=== PATIENT | male | born 1950 | race African-American/Black ===

== ENCOUNTER → 2018-08-14 | Outpatient (CLI) | payer BC, OTHER ==
[~2018-08-14] MED LIST: ASPI-1012 PO; Acetaminophen PO; CAPT50TA3 PO; CELE200 PO; GABA100C PO; OXYC5 PO; TRAM50TA4 PO
== END | disposition home or self-care (01) ==
LOC: RAH 10:36
PROVIDERS: ATTEND Orthopaedic Surgery
DX: S42.122A Displaced fracture of acromial process, left shoulder, initial encounter for closed fracture (principal); X58.XXXA Exposure to other specified factors, initial encounter; Y93.89 Activity, other specified; Y92.89 Other specified places as the place of occurrence of the external cause; Y99.8 Other external cause status
CPT/HCPCS: 73200

== ENCOUNTER 2018-08-21 15:15 | Emergency (ER) | payer OTHER ==
[~2018-08-21 15:15] MED LIST changes: -CEFAZOLIN SODIUM 1 GM VIAL IVP SCH
== END 2018-08-21 16:41 | disposition home or self-care (01) ==
LOC: EDH 15:15
DX: R94.31 Abnormal electrocardiogram [ECG] [EKG] (principal); I10 Essential (primary) hypertension; E78.5 Hyperlipidemia, unspecified; E11.9 Type 2 diabetes mellitus without complications; Z72.0 Tobacco use
CPT/HCPCS: 36415; 84484; 93005

== ENCOUNTER → 2018-08-21 | Outpatient (CLI) | payer OTHER ==
[~2018-08-21] VITALS: Ht 170.2 cm; Wt 83.6 kg
[~2018-08-21] MED LIST changes: +CEFAZOLIN SODIUM 1 GM VIAL IVP SCH; +DOCU-116 PO; +EZET10 PO; +PREG50 PO; +TIZA2CAP9 PO; +TYL3 PO
[2018-08-21 13:55] VITALS: BP 136/82
[2018-08-21 14:11] LABS: BASOPHILS % (AUTO) 0.8 % (0.0-5.0); EOSINOPHILS % (AUTO) 1.9 % (0.0-8.0); HEMATOCRIT 41.8 % (42-54); LYMPHOCYTES % (AUTO) 26.1 % (21.0-51.0); MEAN CORPUSCULAR HEMOGLOBIN 27.7 pg (27.0-33.0); MEAN CORPUSCULAR HGB CONC 32.6 g/dL (32.0-36.0); MONOCYTES % (AUTO) 9.1 % (3.0-13.0); NEUTROPHILS % (AUTO) 62.1 % (40.0-77.0); PLATELET COUNT (AUTO) 196 K/uL (130-400); RED BLOOD CELL COUNT(AUTO) 4.91 MIL/uL (4.50-6.20); RED CELL DISTRIBUTION WIDTH 14.3 % (11.0-15.5); WHITE BLOOD COUNT (AUTO) 7.6 K/uL (4.8-10.8)
[2018-08-21 14:27] LABS: CREATININE 1.2 mg/dL (0.5-1.5); POTASSIUM 4.2 mmol/L (3.5-5.1)
--- NOTE | 2018-08-21 14:45 | NUR ---
EKG [facility], DR VALE REVIEWED CHART AND EKG, STATED HE WANTS PATIENT TO BE EVALUATED BY HIS PRIMARY DOCTOR.
--- NOTE | 2018-08-21 15:00 | NUR ---
EKG NOTIFIED DR DAMON OF [facility] AND DR VALE WANTS A CLEARANCE, DR DAMON'S ORDERS TO SEND TO EMERGENCY ROOM TO BE EVALUATED AND TO BE CONSULTED AFTER EVALUATION
--- NOTE | 2018-08-21 15:10 | NUR ---
TRANSPORTED PATIENT TO EMERGENCY ROOM VIA WHEELCHAIR, REPORT GIVEN TO TRIAGE NURSE
--- NOTE | 2018-08-22 11:15 | NUR ---
CARDIAC CLEARANCE IS REQUIRED BEFORE PROCEDURE CAN BE DONE, PROCEDURE CANCELLED.
== END | disposition home or self-care (01) ==
LOC: EDSTATUS 08-19 15:30 → DAH 10:00 → EDSTATUS 15:30
PROVIDERS: ATTEND Orthopaedic Surgery
DX: Z01.818 Encounter for other preprocedural examination (principal); I51.7 Cardiomegaly; S42.032A Displaced fracture of lateral end of left clavicle, initial encounter for closed fracture; X58.XXXA Exposure to other specified factors, initial encounter; Y93.89 Activity, other specified; Y92.89 Other specified places as the place of occurrence of the external cause; Y99.8 Other external cause status
CPT/HCPCS: 36415; 80048; 85025; 93005

== ENCOUNTER → 2018-08-25 | Outpatient (CLI) | payer OTHER ==
[~2018-08-25] VITALS: Ht 170.2 cm; Wt 83.5 kg
[~2018-08-25] MED LIST changes: -ASPI-1012 PO; -Acetaminophen PO; -CELE200 PO; -GABA100C PO; -OXYC5 PO; +REGADENOSON 0.4 MG/5 ML PF SYG IVP SCH; -TRAM50TA4 PO
== END | disposition home or self-care (01) ==
LOC: RAH 08:08
PROVIDERS: ATTEND Internal Medicine Cardiovascular Disease
DX: Z01.818 Encounter for other preprocedural examination (principal); I34.0 Nonrheumatic mitral (valve) insufficiency; I11.9 Hypertensive heart disease without heart failure; R01.1 Cardiac murmur, unspecified
CPT/HCPCS: 78452; 93017; 93306; 96374; A9500 ×2; J2785

== ENCOUNTER 2018-09-04 07:13 | Inpatient (IN) | payer OTHER ==
[2018-09-02 16:22] VITALS: BP 119/73
[2018-09-02 16:31] LABS: APPEARANCE,URINE CLEAR (CLEAR); BILIRUBIN,URINE NEGATIVE (NEGATIVE); COLOR,URINE YELLOW (YELLOW); GLUCOSE, URINE (UA) 100 mg/dL (NEGATIVE); KETONES,URINE NEGATIVE (NEGATIVE); LEUKOCYTE ESTERASE ,URINE NEGATIVE (NEGATIVE); NITRATE,URINE NEGATIVE (NEGATIVE); OCCULT BLOOD,URINE NEGATIVE (NEGATIVE); PROTEIN,URINE NEGATIVE (NEGATIVE); UROBILINOGEN,URINE 0.2 mg/dL (0.2-1.0)
[2018-09-02 16:37] LABS: BACTERIA,URINE Rare /HPF (None Seen); RBC,URINE None Seen /HPF (0-1); SQUAMOUS EPITHELIAL CELL,UR None Seen /HPF (0-2); WBC,URINE 0-1 /HPF (0-1)
[2018-09-02 17:11] LABS: BASOPHILS % (AUTO) 0.4 % (0.0-5.0); EOSINOPHILS % (AUTO) 2.2 % (0.0-8.0); LYMPHOCYTES % (AUTO) 23.6 % (21.0-51.0); MEAN CORPUSCULAR HEMOGLOBIN 27.9 pg (27.0-33.0); MEAN CORPUSCULAR HGB CONC 33.2 g/dL (32.0-36.0); MEAN CORPUSCULAR VOLUME 84.1 fL (79-99); MONOCYTES % (AUTO) 8.8 % (3.0-13.0); NUCLEATED RED BLOOD CELLS 0.1 % (0.0-0.19); PLATELET COUNT (AUTO) 153 K/uL (130-400); RED BLOOD CELL COUNT(AUTO) 5.24 MIL/uL (4.50-6.20); RED CELL DISTRIBUTION WIDTH 14.3 % (11.0-15.5); WHITE BLOOD COUNT (AUTO) 7.6 K/uL (4.8-10.8)
[2018-09-02 17:27] LABS: PARTIAL THROMBOPLASTIN TIME 30.4 SEC (26.3-35.5); PROTHROMBIN TIME 10.5 SEC (9.6-11.6)
[2018-09-02 17:30] LABS: CREATININE 1.1 mg/dL (0.5-1.5)
[~2018-09-04] VITALS: Ht 165.1 cm; Wt 82.4 kg
[2018-09-04] VITALS (27 sets, daily range): BP systolic 103–155; BP diastolic 69–93
[~2018-09-04 07:13] MED LIST changes: +AEC81 PO; -DOCU-116 PO; +GABA-529 PO; -PREG50 PO; -REGADENOSON 0.4 MG/5 ML PF SYG IVP SCH; +TRAM50TA4 PO; -TYL3 PO
[2018-09-04] MEDS ORDERED: SODIUM CHLORIDE 0.9% 1000ML 1,000 ML IV SCH (08:00)
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
[2018-09-04] MEDS ORDERED: LIDOCAINE HCL 2% 20ML ONE (10:47)
[2018-09-04] MEDS ORDERED: IOHEXOL-350 50ML VIAL IV ONE (10:47)
[2018-09-04] MEDS ORDERED: HEPARIN SODIUM 1000UNIT/ML 10ML VIAL ONE (10:47)
[2018-09-04] MEDS ORDERED: IOHEXOL 350 MG/ML 100ML INFUS..BTL IV ONE (10:47)
[2018-09-04] MEDS ORDERED: GLUCAGON 1MG KIT 1 MG ML IM PRN (11:30)
[2018-09-04] MEDS ORDERED: DEXTROSE 50%-WATER 50 ML DISP.SYRIN IV PRN (11:30)
[2018-09-04] MEDS ORDERED: TRAMADOL HCL 50 MG TABLET ONE (18:20)
[2018-09-04] MEDS ORDERED: TRAMADOL HCL 50 MG TABLET PO ONE (18:30)
[2018-09-04] MEDS ORDERED: ACETAMINOPHEN 325 MG TAB PO PRN (19:45)
[2018-09-04] MEDS ORDERED: TRAMADOL HCL 50 MG TABLET PO PRN (19:45)
--- NOTE | 2018-09-04 20:06 | NUR ---
REPORT CALLED TO RAJ RN, PT TAKEN UP TO ROOM 221 AND CARE RENDERED OVER.
[2018-09-04] MEDS: INSULIN HUMULIN R 100 UNIT/ML 3ML SQ SCH (21:00)
--- NOTE | 2018-09-04 21:05 | NUR ---
Patient sat up at bedside. Groin remains soft. Dressing CDI. Pulses palpable.
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
--- NOTE | 2018-09-04 21:25 | NUR ---
Patient ambulated in room. No pain to groin or chest pain. Patient groin site CDI and remains soft. Pulses intact
[2018-09-04 22:18] LABS: HEMATOCRIT 44.8 % (42-54); MEAN CORPUSCULAR HEMOGLOBIN 27.5 pg (27.0-33.0); MEAN CORPUSCULAR HGB CONC 32.9 g/dL (32.0-36.0); MEAN CORPUSCULAR VOLUME 83.6 fL (79-99); PLATELET COUNT (AUTO) 150 K/uL (130-400); RED BLOOD CELL COUNT(AUTO) 5.36 MIL/uL (4.50-6.20); RED CELL DISTRIBUTION WIDTH 14.2 % (11.0-15.5); WHITE BLOOD COUNT (AUTO) 8.1 K/uL (4.8-10.8)
[2018-09-04 22:31] LABS: INR 1.01 (0.85-1.15); PARTIAL THROMBOPLASTIN TIME 29.5 SEC (26.3-35.5); PROTHROMBIN TIME 10.6 SEC (9.6-11.6)
[2018-09-04 22:37] LABS: CREATININE 1.2 mg/dL (0.5-1.5)
[2018-09-04 22:42] LABS: HEMOGLOBIN A1C 7.4 % (4.0-6.0)
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
[2018-09-05] VITALS (34 sets, daily range): BP systolic 90–155; BP diastolic 49–75
[2018-09-05] MEDS: INSULIN HUMULIN R 100 UNIT/ML 3ML SQ SCH ×4 (06:18→20:10)
[2018-09-05] MEDS ORDERED: CEFAZOLIN SODIUM 1 GM VIAL IVP PRN (08:00)
[2018-09-05] MEDS ORDERED: BACITRACIN 50,000 UNIT VIAL ONE (08:26)
[2018-09-05] MEDS ORDERED: OCTYL 2-CYANOACRYLATE 1 EACH TP ONE (08:26)
[2018-09-05] MEDS ORDERED: PAPAVERINE HCL 30 MG/ML 2ML VIAL ONE (08:26)
--- NOTE | 2018-09-05 08:28 | NUR ---
DR. Brannon BARRIGA IN ROOM SPEAKING WITH PT.
--- NOTE | 2018-09-05 08:40 | NUR ---
RESTING IN BED WITH HOB AT SEMI-BALBUENA'S POSITION. AAOX3, RESP.'S EVEN AND UNLABORED. DENIES ANY C/O SOB, DENIES ANY CURRENT PAIN. PLEASANT, TALKATIVE. RIGHT GROIN SOFT, NO ECCHYMOSIS OR HEMATOMA NOTED. CALL LIGHT WITHIN REACH. FAMILY MEMBERS AT BEDSIDE.
[2018-09-05] MEDS ORDERED: NITROGLYCERIN 50 MG/D5% WATER 1 BOT ONE (08:52)
[2018-09-05] MEDS ORDERED: EPINEPHRINE 1 MG/ML 30ML VIAL IJ ONE (08:52)
[2018-09-05] MEDS ORDERED: METOPROLOL TARTRATE 25 MG TAB PO SCH (09:00)
--- NOTE | 2018-09-05 09:23 | NUR ---
ORDERED PRE-OP ANCEF MIXED PIGGYBACK AND SENT WITH HOLDING AREA NURSE WITH PT.
[2018-09-05] MEDS ORDERED: SODIUM CHLORIDE 0.9% 1000ML 1,000 ML IV ONE (09:33)
[2018-09-05] MEDS ORDERED: CEFUROXIME SODIUM 1.5 GM VIAL ONE (10:08)
[2018-09-05] MEDS ORDERED: PROPOFOL 10 MG/ML 20ML VIAL IV ONE (10:09)
[2018-09-05] MEDS ORDERED: LIDOCAINE PF 2% 5ML ABBOJECT ONE ×2 (10:09→11:01)
[2018-09-05] MEDS ORDERED: PROTAMINE SULFATE 10 MG/ML 25ML VIAL IV ONE (10:09)
[2018-09-05] MEDS ORDERED: MIDAZOLAM HCL 1 MG/ML 5ML VIAL ONE (10:09)
[2018-09-05] MEDS ORDERED: HEPARIN SODIUM 1000UNIT/ML 10ML VIAL ONE (10:09)
[2018-09-05] MEDS ORDERED: AMINOCAPROIC ACID 250 MG/ML 20 ML VIAL IV ONE (10:09)
[2018-09-05] MEDS ORDERED: FENTANYL CITRATE PF 50 MCG/1 ML 20ML VIAL IJ ONE (10:09)
[2018-09-05] MEDS ORDERED: EPINEPHRINE 1 MG/ML AMPULE ONE ×2 (10:09→13:38)
[2018-09-05] MEDS ORDERED: NOREPINEPHRINE BITARTRATE 1 MG/1 ML ML IV ONE (10:09)
[2018-09-05] MEDS ORDERED: ESMOLOL HCL 10 MG/ML 10 ML VIAL ONE (10:09)
[2018-09-05] MEDS ORDERED: ROCURONIUM 10MG/1ML SYR 10 MG/ML ML ONE (10:10)
[2018-09-05] MEDS ORDERED: AMIODARONE HCL 50 MG/ML 3 ML VIAL ONE (10:13)
[2018-09-05] MEDS ORDERED: VASOPRESSIN 20 UNITS/ML 1ML VIAL ONE (10:13)
[2018-09-05] MEDS ORDERED: GLYCOPYRROLATE 1 MG/5 ML SYRINGE ONE (10:29)
[2018-09-05 10:40] LABS: ABG BASE EXCESS -0.8 mmol/L (-2.0-3.0); ABG HCO3 21.6 mmol/L (21.0-28.0); ABG OXYGEN SATURATION 98.9 % (95.0-99.0); ABG PCO2 29 mmHg (35-48)
[2018-09-05] MEDS ORDERED: [UNRECOGNIZED DRUG - OTHER] IV ONE (10:48)
[2018-09-05] MEDS ORDERED: SODIUM CHLORIDE 0.9% 500ML 500 ML IV SCH (13:03)
[2018-09-05 13:10] LABS: ABG BASE EXCESS -7.4 mmol/L (-2.0-3.0); ABG HCO3 16.4 mmol/L (21.0-28.0); ABG OXYGEN SATURATION 98.8 % (95.0-99.0); ABG PCO2 29 mmHg (35-48)
[2018-09-05] MEDS ORDERED: ACETAMINOPHEN 325 MG TAB PO PRN (13:15)
[2018-09-05] MEDS ORDERED: TRAMADOL HCL 50 MG TABLET PO PRN ×2 (13:15)
[2018-09-05] MEDS ORDERED: AMINOCAPROIC ACID 15,000 MG in SODIUM CHLORIDE 0.9% 250 ML IV SCH (13:15)
[2018-09-05] MEDS ORDERED: PROPOFOL 1000 MG/100 ML 100 ML IV PRN (13:15)
[2018-09-05] MEDS ORDERED: CALCIUM GLUCONATE 1 GM in SODIUM CHLORIDE 0.9% 50 ML IV PRN (13:15)
[2018-09-05] MEDS ORDERED: MORPHINE SULFATE 4 MG/1ML SYG IV PRN (13:15)
[2018-09-05] MEDS ORDERED: SODIUM CHLORIDE 0.9% 250 ML IV PRN (13:15)
[2018-09-05] MEDS ORDERED: POTASSIUM PHOS 15 mMOL+NS250ML 250 ML IV PRN (13:15)
[2018-09-05] MEDS ORDERED: ALBUMIN (HUMAN) 5% 250 ML IV PRN (13:15)
[2018-09-05] MEDS ORDERED: EPINEPHRINE 8 MG in DEXTROSE 5%-WATER 250 ML IV PRN (13:15)
[2018-09-05] MEDS ORDERED: NITROGLYCERIN 50 MG/D5% WATER 250 BOT IV SCH (13:15)
[2018-09-05] MEDS ORDERED: MORPHINE SULFATE 2 MG/ML 1ML SYG IV PRN (13:15)
[2018-09-05] MEDS ORDERED: DEXTROSE 50%-WATER 50 ML DISP.SYRIN IV PRN (13:15)
[2018-09-05] MEDS ORDERED: NOREPINEPHRINE 4MG/NS 250ML 250 ML IV PRN (13:15)
[2018-09-05] MEDS ORDERED: SODIUM CHLORIDE 0.9% 1000ML 1,000 ML IV SCH (13:15)
[2018-09-05] MEDS ORDERED: ACETAMINOPHEN 650 MG SUPPOSITORY RC PRN (13:15)
[2018-09-05] MEDS ORDERED: GLUCAGON 1MG KIT 1 MG ML IM PRN (13:15)
[2018-09-05] MEDS ORDERED: SODIUM CHLORIDE 0.9% 10 ML VIAL IVP PRN (13:15)
[2018-09-05] MEDS ORDERED: ONDANSETRON HCL 4 MG/2 ML VIAL IV PRN (13:15)
[2018-09-05] MEDS ORDERED: SODIUM BICARB 50MEQ 50ML VIAL ONE (13:18)
[2018-09-05] MEDS ORDERED: POTASSIUM CHLORIDE 20MEQ/100ML 100 ML IV ONE (13:31)
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
[2018-09-05 14:05] LABS: HEMATOCRIT 38.1 % (42-54); MEAN CORPUSCULAR HEMOGLOBIN 26.8 pg (27.0-33.0); MEAN CORPUSCULAR HGB CONC 31.8 g/dL (32.0-36.0); MEAN CORPUSCULAR VOLUME 84.5 fL (79-99); PLATELET COUNT (AUTO) 108 K/uL (130-400); RED CELL DISTRIBUTION WIDTH 13.9 % (11.0-15.5); WHITE BLOOD COUNT (AUTO) 23.5 K/uL (4.8-10.8)
[2018-09-05 14:21] LABS: ABG HCO3 20.9 mmol/L (21.0-28.0); ABG OXYGEN SATURATION 98.2 % (95.0-99.0); ABG PCO2 34 mmHg (35-48)
[2018-09-05] MEDS: SODIUM BICARB 50MEQ 50ML VIAL IV PRN ×2 (14:23→17:37)
[2018-09-05] MEDS: POTASSIUM CHLORIDE 20MEQ/100ML 100 ML IV PRN ×3 (14:25→21:11)
[2018-09-05 14:30] LABS: INR 1.13 (0.85-1.15); PARTIAL THROMBOPLASTIN TIME 26.1 SEC (26.3-35.5); PROTHROMBIN TIME 11.8 SEC (9.6-11.6)
--- NOTE | 2018-09-05 14:30 | NUR ---
[facility] CALLED AND NOITFIED OF PT ARRIVAL TO UNIT POST CABG.
[2018-09-05 14:32] LABS: CREATININE 1.2 mg/dL (0.5-1.5); MAGNESIUM 1.4 mg/dL (1.80-2.40); PHOSPHORUS 3.9 mg/dL (2.5-4.9); POTASSIUM 3.2 mmol/L (3.5-5.1)
[2018-09-05] MEDS: INSULIN REGULAR, HUMAN 3ML 100 UNIT in SODIUM CHLORIDE 0.9% 99 ML IV SCH ×2 (14:42)
--- NOTE | 2018-09-05 14:45 | NUR ---
FAMILY AT BEDSIDE AND UPDATED IN PLAN OF CARE. ALL QUESTIONS ANSWERED.
[2018-09-05] MEDS: MAGNESIUM 2GM PREMIX 50ML 50 ML IV PRN (15:01)
--- NOTE | 2018-09-05 15:20 | NUR ---
DR. IVORY IN TO SEE PT. PLAN OF CARE DISCUSSED.
[2018-09-05] MEDS ORDERED: KETOROLAC TROMETHAMINE 30MG/ML ONE (15:28)
[2018-09-05] MEDS ORDERED: KETOROLAC TROMETHAMINE 30MG/ML IV SCH (15:30)
[2018-09-05 16:07] LABS: ABG BASE EXCESS -0.1 mmol/L (-2.0-3.0); ABG HCO3 22.6 mmol/L (21.0-28.0); ABG OXYGEN SATURATION 98.2 % (95.0-99.0); ABG PCO2 32 mmHg (35-48)
--- NOTE | 2018-09-05 16:23 | NUR ---
PT FULLY AWAKE, ABLE TO SUSTAIN HEAD LIFT AND WITH STRONG BILATERAL HAND REFERENCE DATA EXPERT. TOLERATING WEANING FROM VENT. ABG AND WEANING PARAMETERS COMPLETED. PT WITH NIF -28 AND VITAL CAPACITY OF 1 L. PT EXTUBATED PER CV PROTOCOL AND PLACED ON AFM 40 %. INSTRUCTED ON DEEP BREATHING AND COUGHING. VS NOTED ON COMPUTER. TOLERATING WELL, NO ADVERSE REACTION NOTED. CONTINUE TO MONITOR PT.
[2018-09-05 17:31] LABS: ABG BASE EXCESS -2.2 mmol/L (-2.0-3.0); ABG HCO3 23.3 mmol/L (21.0-28.0); ABG OXYGEN SATURATION 98.7 % (95.0-99.0); ABG PCO2 42 mmHg (35-48)
[2018-09-05] MEDS: CEFAZOLIN SODIUM 1 GM VIAL IV SCH (17:36)
[2018-09-05] MEDS: TRAMADOL HCL 50 MG TABLET PO PRN (20:00)
[2018-09-05 21:02] LABS: ABG BASE EXCESS -0.3 mmol/L (-2.0-3.0); ABG HCO3 24.7 mmol/L (21.0-28.0); ABG OXYGEN SATURATION 98.3 % (95.0-99.0); ABG PCO2 42 mmHg (35-48)
[2018-09-06] VITALS (49 sets, daily range): BP systolic 85–145; BP diastolic 45–94
[2018-09-06] MEDS ORDERED: CALCIUM GLUCONATE 1 GM/10 ML VIAL IV ONE ×2 (02:32→05:01)
[2018-09-06] MEDS: CEFAZOLIN SODIUM 1 GM VIAL IV SCH ×2 (02:33→09:17)
[2018-09-06 03:44] LABS: HEMATOCRIT 34.7 % (42-54); MEAN CORPUSCULAR HEMOGLOBIN 27.8 pg (27.0-33.0); MEAN CORPUSCULAR VOLUME 84.4 fL (79-99); PLATELET COUNT (AUTO) 112 K/uL (130-400); RED BLOOD CELL COUNT(AUTO) 4.11 MIL/uL (4.50-6.20); RED CELL DISTRIBUTION WIDTH 14.1 % (11.0-15.5); WHITE BLOOD COUNT (AUTO) 14.7 K/uL (4.8-10.8)
[2018-09-06] MEDS ORDERED: ALBUMIN (HUMAN) 5% 250 ML IV ONE (03:45)
[2018-09-06 03:57] LABS: INR 1.07 (0.85-1.15); PARTIAL THROMBOPLASTIN TIME 29.6 SEC (26.3-35.5); PROTHROMBIN TIME 11.2 SEC (9.6-11.6)
[2018-09-06 04:03] LABS: CREATININE 1.1 mg/dL (0.5-1.5); MAGNESIUM 1.6 mg/dL (1.80-2.40); POTASSIUM 3.8 mmol/L (3.5-5.1)
[2018-09-06 04:33] LABS: ABG BASE EXCESS 0.5 mmol/L (-2.0-3.0); ABG HCO3 24.4 mmol/L (21.0-28.0); ABG OXYGEN SATURATION 98.1 % (95.0-99.0); ABG PCO2 37 mmHg (35-48)
[2018-09-06] MEDS: MAGNESIUM 2GM PREMIX 50ML 50 ML IV PRN (05:09)
[2018-09-06] MEDS: POTASSIUM CHLORIDE 20MEQ/100ML 100 ML IV PRN (05:09)
[2018-09-06] MEDS: INSULIN HUMULIN R 100 UNIT/ML 3ML SQ SCH ×4 (07:30→21:00)
[2018-09-06] MEDS: ASPIRIN 325MG EC TAB 325 MG TABLET.DR PO SCH (08:48)
[2018-09-06] MEDS ORDERED: PANTOPRAZOLE 40 MG/VIAL IV SCH (09:00)
[2018-09-06] MEDS: INSULIN REGULAR, HUMAN 3ML 100 UNIT in SODIUM CHLORIDE 0.9% 99 ML IV SCH ×2 (09:15)
--- NOTE | 2018-09-06 14:39 | NUR ---
DC PLAN VISITED WITH PATIENT. PATIENT LIVES WITH SPOUSE. INDEPENDENT ABLE TO PERFORM ADL'S. PATIENT HAS WALKER DAPHNEY DOES NOT USE. NO SERVICES. FEELS SAFE TO RETURN HOME. Addendum: 09/06/18 at 1441 by DAWSON REINA RN CM Amended: Links added.
[2018-09-06] MEDS ORDERED: ATROPINE SULFATE 0.1 MG/ML 10 ML SYG IVP ONE (22:34)
[2018-09-07] VITALS (42 sets, daily range): BP systolic 77–126; BP diastolic 40–80
[2018-09-07] MEDS: TRAMADOL HCL 50 MG TABLET PO PRN ×2 (02:00→19:50)
[2018-09-07 03:35] LABS: HEMATOCRIT 29.7 % (42-54); MEAN CORPUSCULAR HEMOGLOBIN 27.8 pg (27.0-33.0); MEAN CORPUSCULAR HGB CONC 33.2 g/dL (32.0-36.0); MEAN CORPUSCULAR VOLUME 83.6 fL (79-99); PLATELET COUNT (AUTO) 82 K/uL (130-400); RED BLOOD CELL COUNT(AUTO) 3.55 MIL/uL (4.50-6.20); RED CELL DISTRIBUTION WIDTH 14.1 % (11.0-15.5); WHITE BLOOD COUNT (AUTO) 14.4 K/uL (4.8-10.8)
[2018-09-07 03:50] LABS: POTASSIUM 4.1 mmol/L (3.5-5.1)
[2018-09-07] MEDS: INSULIN HUMULIN R 100 UNIT/ML 3ML SQ SCH ×4 (07:06→21:00)
[2018-09-07] MEDS ORDERED: SODIUM CHLORIDE 0.9% 1000ML 1,000 ML IV ONE (08:12)
[2018-09-07] MEDS: PANTOPRAZOLE SODIUM 40 MG TABLET.DR PO SCH (08:14)
[2018-09-07] MEDS: ASPIRIN 325MG EC TAB 325 MG TABLET.DR PO SCH (08:14)
[2018-09-07] MEDS: POTASSIUM CHLORIDE 20MEQ/100ML 100 ML IV PRN (10:04)
[2018-09-07] MEDS: MAGNESIUM 2GM PREMIX 50ML 50 ML IV PRN (10:05)
[2018-09-07] MEDS: ATORVASTATIN CALCIUM 40 MG TABLET PO SCH (21:48)
[2018-09-08] VITALS (8 sets, daily range): BP systolic 92–109; BP diastolic 58–73
[2018-09-08 03:54] LABS: HEMATOCRIT 28.6 % (42-54); MEAN CORPUSCULAR HEMOGLOBIN 27.8 pg (27.0-33.0); MEAN CORPUSCULAR HGB CONC 32.9 g/dL (32.0-36.0); MEAN CORPUSCULAR VOLUME 84.7 fL (79-99); PLATELET COUNT (AUTO) 85 K/uL (130-400); RED BLOOD CELL COUNT(AUTO) 3.38 MIL/uL (4.50-6.20); WHITE BLOOD COUNT (AUTO) 11.8 K/uL (4.8-10.8)
[2018-09-08 04:07] LABS: POTASSIUM 4.2 mmol/L (3.5-5.1)
[2018-09-08] MEDS: INSULIN HUMULIN R 100 UNIT/ML 3ML SQ SCH ×4 (07:15→21:00)
--- NOTE | 2018-09-08 07:45 | NUR ---
RECEIVED PATIENT IN BEDSIDE CARDIAC CHAIR. NO ACUTE DISTRESS NOTED. PT IS AAOX4. POD#3 CABG x3. DRESSING TO STERNUM IS D/I, DRESSING FROM CHEST TUBE REMOVAL IS D/I. ABD SOFT, + BOWEL SOUNDS. POC DISCUSSED WITH PATIENT. PLAN FOR PHYSICAL THERAPY TO AMBULATE PATIENT, PT TO CONT WITH IS THERAPY AND OUT BED ALL DAY. TELE WITH SR 80s. WILL CONT TO MONITOR CLOSELY.
--- NOTE | 2018-09-08 08:30 | NUR ---
MD ROUNDS DR. TAVERA IN TO SEE PATIENT. MD MADE AWARE OF URINE OUTPUT AND PLATELETS. NEW ORDERS RECEIVED TO BE CARRIED OUT.
[2018-09-08] MEDS: PANTOPRAZOLE SODIUM 40 MG TABLET.DR PO SCH (08:44)
[2018-09-08] MEDS: ASPIRIN 325MG EC TAB 325 MG TABLET.DR PO SCH (08:44)
--- NOTE | 2018-09-08 12:58 | NUR ---
MD ROUNDS DR. IVANIA LATIF IN TO SEE PATIENT. NEW ORDERS RECEIVED TO BE CARRIED OUT.
[2018-09-08] MEDS: ACETAMINOPHEN 325 MG TAB PO PRN ×2 (13:06→20:38)
[2018-09-08] MEDS: METOPROLOL TARTRATE 25 MG TAB PO SCH ×2 (13:25→21:00)
[2018-09-08] MEDS: ATORVASTATIN CALCIUM 40 MG TABLET PO SCH (20:37)
[2018-09-08] MEDS: ENOXAPARIN SODIUM 30 MG/0.3 ML SQ SCH (20:38)
[2018-09-08] MEDS ORDERED: METOPROLOL TARTRATE 25 MG TAB PO SCH (21:00)
[2018-09-09 03:00] VITALS: BP 100/66
[2018-09-09] MEDS: INSULIN HUMULIN R 100 UNIT/ML 3ML SQ SCH (06:10)
[2018-09-09] MEDS: ACETAMINOPHEN 325 MG TAB PO PRN (06:35)
[2018-09-09 07:31] VITALS: BP 113/73
--- NOTE | 2018-09-09 07:45 | NUR ---
PATIENT ASKING IF HE CAN TAKE HIS COLACE 100MG PO TODAY. INSTRUCTED THAT I WILL CONSULT WITH DR. TAVERA AND LET HIM KNOW. SAID IT WAS OKAY TO TAKE COLACE.
[2018-09-09] MEDS ORDERED: ATOR10 PO (08:23)
[2018-09-09] MEDS ORDERED: METO-391 PO (08:23)
[2018-09-09] MEDS: PANTOPRAZOLE SODIUM 40 MG TABLET.DR PO SCH (08:28)
[2018-09-09] MEDS: ENOXAPARIN SODIUM 30 MG/0.3 ML SQ SCH (08:28)
[2018-09-09] MEDS: ASPIRIN 325MG EC TAB 325 MG TABLET.DR PO SCH (08:29)
[2018-09-09] MEDS ORDERED: METOPROLOL TARTRATE 25 MG TAB PO SCH (09:00)
--- NOTE | 2018-09-09 09:31 | NUR ---
PT WAS RECEIVED IN BED, SPOUSE AT BEDSIDE. NO ACUTE DISTRESS NOTED OR PAIN VOICED. TELE WITH SR 80s. DR. TAVERA IN TO SEE PATIENT. UPDATED ON METOPROLOL ORDER PER DR. LATIF. NEW ORDERS TO GO BACK TO 6.25MG PO BID DUE TO BORDERLINE BLOOD PRESSURE. PLAN FOR POSSIBLE DISCHARGE TODAY THIS EVENING. PATIENT PLACED ON ROOM AIR TO MONITOR SATURATION ON ROOM AIR. SLING PROVIDED FOR LEFT ARM D/T FRACTURE. WILL CONT TO MONITOR. DR. LATIF IN TO SEE PATIENT. MADE AWARE OF ORDER CHANGE PER DR. TAVERA. MADE AWARE OF PLAN FOR DISCHARGE THIS EVENING. MD LEFT A SCRIPT FOR METOPROLOL SUCCINATE AND LIPITOR. WILL CONT TO MONITOR PT CLOSELY.
[2018-09-09 11:22] VITALS: BP 102/66
--- NOTE | 2018-09-09 12:51 | NUR ---
PT'S O2 SATURATION WHILE AMBULATING ON ROOM AIR MAINTAINS ABOVE 90%. PAGED IVANIA MONTES TO CLARIFY PRESCRIPTION FOR METOPROLOL SUCCINATE DOSE PER DR. TAVERA REQUEST PRIOR TO DISCHARGE. WILL AWAIT CALL BACK.
--- NOTE | 2018-09-09 15:06 | NUR ---
METOPROLOL RX CLARIFIED WITH DR. LATIF. PT AND FAMILY HAVE BEEN GIVEN DISCHARGE INSTRUCTIONS FOLLOWS: Appt. Dr. Jr Lucero 09/19 @ 1:30. Follow up with Dr. Aguilera on 09/29/18 at 9:45am. [phone] METOPROLOL SUCCINATE ER 25 MG BY MOUTH DAILY ADDITIONAL INSTRUCTIONS: You can not push, pull, or lift anything heavier than 10-15 pounds for 6, weeks. You can not drive for 6 weeks. Continue to use your incentive, spirometer at home. WALK as much as tolerated at home. You may also, WALK outside. Your incision can be left open to air. You can wash it, in the shower with warm, soapy water. MONITOR FOR S/S OF INFECTION. INSTRUCTED ON SIGNS AND SYMPTOMS RELATED TO INCISIONAL CARE AND MEDICATIONS, TO MONITOR FOR AND WHEN TO SEEK IMMEDIATE MEDICAL CARE. KEEP GOOD COMMUNICATION WITH PHYSICIANS. MONITOR BP AND HR, SAFETY PRECAUTIONS, STERNAL PRECAUTIONS AND MEDICATIONS DISCUSSED. RX FOR ATORVASTATIN AND METOPROLOL GIVEN TO PATIENT. FOLLOW A HEART HEALTHY DIET. IF QUESTIONS AND CONCERNS CALL YOUR PHYSICIAN FOR EMERGENCIES 911.
== END 2018-09-09 15:16 | disposition home or self-care (01) | DRG 234 ==
LOC: DAH 07:13 → DAHIP 07:14 → 2DH 21:07 → 2CV 09-05 10:40 → 2BH 09-06 10:40
PROVIDERS: ADMIT Thoracic Surgery (Cardiothoracic Vascular Surgery); ATTEND Thoracic Surgery (Cardiothoracic Vascular Surgery)
PROC: 4A023N7 Measurement of Cardiac Sampling and Pressure, Left Heart, Percutaneous Approach (ICD-10-PCS; principal; 2018-09-04)
PROC: B2111ZZ Fluoroscopy of Multiple Coronary Arteries using Low Osmolar Contrast (ICD-10-PCS; 2018-09-04)
PROC: B2151ZZ Fluoroscopy of Left Heart using Low Osmolar Contrast (ICD-10-PCS; 2018-09-04)
PROC: 02100Z9 Bypass Coronary Artery, One Artery from Left Internal Mammary, Open Approach (ICD-10-PCS; 2018-09-05)
PROC: 021109W Bypass Coronary Artery, Two Arteries from Aorta with Autologous Venous Tissue, Open Approach (ICD-10-PCS; 2018-09-05)
PROC: 06BQ4ZZ Excision of Left Saphenous Vein, Percutaneous Endoscopic Approach (ICD-10-PCS; 2018-09-05)
PROC: 06BP4ZZ Excision of Right Saphenous Vein, Percutaneous Endoscopic Approach (ICD-10-PCS; 2018-09-05)
DX: I25.119 Atherosclerotic heart disease of native coronary artery with unspecified angina pectoris (principal); D69.6 Thrombocytopenia, unspecified; E11.9 Type 2 diabetes mellitus without complications; E78.5 Hyperlipidemia, unspecified; I11.9 Hypertensive heart disease without heart failure; I25.82 Chronic total occlusion of coronary artery; I65.29 Occlusion and stenosis of unspecified carotid artery; M19.90 Unspecified osteoarthritis, unspecified site; Z79.899 Other long term (current) drug therapy
CPT/HCPCS: 36415; 71045; 80048; 80061; 81001; 82330; 82435; 82803; 82947; 82948; 83036; 83605; 83735; 84100; 84132; 84295; 85018; 85025; 85027; 85347; 85610; 85730; 86850; 86900; 86901; 86922; 93005; 93458; 93880; 94002; 94010; 94150; 97039; A4218; A4565; A4606; A7048; C1729; C1894; C9113; G0378; J0171; J0282; J0461; J0610; J0690; J0697; J1644; J1650; J1815; J1885; J2001; J2250; J2405; J2440; J2704; J2720; J3010; J3475; J3480; J3490; J7030; J7040; J7060; J7197; P9045; Q9967

== ENCOUNTER 2018-09-14 01:45 | Inpatient (IN) | payer OTHER, MEDICARE ==
[~2018-09-14 01:45] MED LIST changes: +ATOR10 PO; -CAPT50TA3 PO; -EZET10 PO; +METO-391 PO
[2018-09-14] MEDS ORDERED: BENZONATATE 100 MG CAPSULE PO ONE (02:11)
[2018-09-14 02:22] LABS: BASOPHILS % (AUTO) 0.7 % (0.0-5.0); EOSINOPHILS % (AUTO) 2.7 % (0.0-8.0); HEMATOCRIT 29.5 % (42-54); LYMPHOCYTES % (AUTO) 9.9 % (21.0-51.0); MEAN CORPUSCULAR HEMOGLOBIN 27.7 pg (27.0-33.0); MEAN CORPUSCULAR HGB CONC 33.3 g/dL (32.0-36.0); MEAN CORPUSCULAR VOLUME 83.2 fL (79-99); MONOCYTES % (AUTO) 9.6 % (3.0-13.0); NEUTROPHILS % (AUTO) 77.1 % (40.0-77.0); PLATELET COUNT (AUTO) 252 K/uL (130-400); RED BLOOD CELL COUNT(AUTO) 3.55 MIL/uL (4.50-6.20); RED CELL DISTRIBUTION WIDTH 13.7 % (11.0-15.5); WHITE BLOOD COUNT (AUTO) 10.6 K/uL (4.8-10.8)
[2018-09-14 02:30] LABS: POTASSIUM 3.8 mmol/L (3.5-5.1)
[2018-09-14 02:34] LABS: ALBUMIN 2.9 g/dL (3.5-5.0); BILIRUBIN,TOTAL 0.5 mg/dL (0.2-1.0)
[2018-09-14 02:38] LABS: B-TYPE NATRIURETIC PEPTIDE 387 pg/mL (0-100)
[2018-09-14] MEDS ORDERED: IOHEXOL 350 MG/ML 100ML INFUS..BTL IV ONE (03:35)
[2018-09-14 05:23] LABS: APPEARANCE,URINE Clear (CLEAR); BILIRUBIN,URINE Negative (NEGATIVE); COLOR,URINE Yellow (YELLOW); GLUCOSE, URINE (UA) >=1000 mg/dL (NEGATIVE); KETONES,URINE Negative (NEGATIVE); LEUKOCYTE ESTERASE ,URINE Negative (NEGATIVE); NITRATE,URINE Negative (NEGATIVE); OCCULT BLOOD,URINE Negative (NEGATIVE); PH,URINE 6.5 (5.0-8.0); PROTEIN,URINE Negative (NEGATIVE)
[2018-09-14] MEDS ORDERED: HEPARIN SODIUM/PF 100UNIT/ML 5ML SYRINGE IV ONE (05:24)
[2018-09-14] MEDS ORDERED: HEPARIN 25000 UNITS/250 ML D5W 250 ML IV ONE (05:25)
[2018-09-14] MEDS ORDERED: HEPARIN SODIUM 5000UNIT/ML 1ML VIAL ONE (05:27)
[2018-09-14 05:40] LABS: BACTERIA,URINE None Seen /HPF (None Seen); RBC,URINE None Seen /HPF (0-1); WBC,URINE None Seen /HPF (0-1); YEAST,URINE BUDDING None Seen /HPF (None Seen)
[2018-09-14 05:41] LABS: SQUAMOUS EPITHELIAL CELL,UR Rare /HPF (0-2)
[2018-09-14] MEDS ORDERED: DEXTROSE 50%-WATER 50 ML DISP.SYRIN IV PRN (05:45)
[2018-09-14] MEDS ORDERED: ONDANSETRON HCL 4 MG/2 ML VIAL IV PRN (05:45)
[2018-09-14] MEDS ORDERED: MORPHINE SULFATE 4 MG/1ML SYG IV PRN (05:45)
[2018-09-14] MEDS ORDERED: GLUCAGON 1MG KIT 1 MG ML IM PRN (05:45)
[2018-09-14] MEDS ORDERED: MORPHINE SULFATE 2 MG/ML 1ML SYG IV PRN (05:45)
[2018-09-14] MEDS ORDERED: NITROGLYCERIN 0.4 MG SL TAB SL PRN (05:45)
[2018-09-14] MEDS ORDERED: HEPARIN 25000 UNITS/250 ML D5W 250 ML IV PRN (05:45)
[2018-09-14] MEDS ORDERED: SODIUM CHLORIDE 0.9% 1000ML 1,000 ML IV SCH (05:45)
[2018-09-14] MEDS ORDERED: ACETAMINOPHEN 325 MG TAB PO PRN ×2 (05:45)
[2018-09-14] MEDS ORDERED: ATROPINE SULFATE 0.1 MG/ML 10 ML SYG IVP ONE ×3 (05:52→10:12)
[2018-09-14] MEDS ORDERED: DOPAMINE 800MG/D5 250ML 250 ML IV ONE (06:00)
[2018-09-14] MEDS ORDERED: IPRATROPIUM/ALBUTEROL SULFATE 3 ML SOLUTION IH SCH (06:00)
[2018-09-14] MEDS ORDERED: PROPOFOL 1000 MG/100 ML 100 ML IV ONE (06:01)
[2018-09-14 06:05] LABS: HEMOGLOBIN A1C 7.8 % (4.0-6.0)
[2018-09-14 06:15] LABS: ABG BASE EXCESS -11.4 mmol/L (-2.0-3.0); ABG HCO3 14.1 mmol/L (21.0-28.0); ABG OXYGEN SATURATION 98.4 % (95.0-99.0); ABG PCO2 31 mmHg (35-48)
[2018-09-14] MEDS ORDERED: EPINEPHRINE 1 MG/ML AMPULE ONE (06:21)
[2018-09-14] MEDS ORDERED: EPINEPHRINE 1 MG/ML 30ML VIAL IJ ONE (06:28)
[2018-09-14] MEDS ORDERED: ZOSYN 3.375GM+NS 50ML 50 ML IV SCH (06:30)
[2018-09-14] MEDS ORDERED: INSULIN HUMULIN R 100 UNIT/ML 3ML SQ SCH (07:30)
[2018-09-14] MEDS ORDERED: FAMOTIDINE 20MG TAB 20 MG TAB PO SCH (09:00)
[2018-09-14] MEDS ORDERED: EPINEPHRINE 0.1 MG/ML 10 ML SYG IVP ONE (10:12)
[2018-09-14] MEDS ORDERED: SODIUM BICARB 8.4% 50ML SYRINGE IVP ONE (10:12)
[2018-09-14] MEDS ORDERED: ROCURONIUM BROMIDE 10MG/1ML 5ML VL IV ONE (10:12)
== END 2018-09-14 10:13 | disposition expired | DRG 298 ==
LOC: EDH 01:45 → EDHIP 05:40
PROVIDERS: ADMIT Hospitalist; ATTEND Hospitalist
PROC: 5A12012 Performance of Cardiac Output, Single, Manual (ICD-10-PCS; principal; 2018-09-14)
PROC: 0BH17EZ Insertion of Endotracheal Airway into Trachea, Via Natural or Artificial Opening (ICD-10-PCS; 2018-09-14)
DX: I46.9 Cardiac arrest, cause unspecified (principal); I25.10 Atherosclerotic heart disease of native coronary artery without angina pectoris; E11.9 Type 2 diabetes mellitus without complications; E78.5 Hyperlipidemia, unspecified; I10 Essential (primary) hypertension; Z95.1 Presence of aortocoronary bypass graft; Z88.8 Allergy status to other drugs, medicaments and biological substances; Z82.3 Family history of stroke; Z82.49 Family history of ischemic heart disease and other diseases of the circulatory system; Z83.3 Family history of diabetes mellitus
CPT/HCPCS: 31500; 36415; 36600; 71045; 71275; 76705; 80053; 81001; 82435; 82550; 82803; 82947; 82948; 83036; 83605; 83735; 83880; 84132; 84295; 84484; 85018; 85025; 87804; 92950; 93005; 93971; 99291; 99292; G0378; J0171; J0461; J1265; J1642; J1644; J2704; J3490; Q9967